=== PATIENT | female | born 1965 | race Caucasian/White ===

== ENCOUNTER → 2016-12-12 | Outpatient (CLI) | payer OTHER ==
[2016-12-12 12:45] LABS: ALT/SGPT 23 U/L (12-78); BLOOD UREA NITROGEN 16 mg/dl (7-18); BUN/CREATININE RATIO 17.1 (10-20); CALCIUM 8.8 mg/dl (8.5-10.1); CARBON DIOXIDE 26 mmol/L (21-32); CHLORIDE 105 mmol/L (98-107); CHOLESTEROL 201 mg/dl (0-200); CREATININE 0.91 mg/dl (0.60-1.20); GLUCOSE 141 mg/dl (70-99); POTASSIUM 3.9 mmol/L (3.5-5.1); SODIUM 141 mmol/L (136-145)
[2016-12-12 12:49] LABS: ALB/GLOB RATIO 1.1 (0.9-2); ALKALINE PHOSPHATASE 48 U/L (45-117); AST/SGOT 13 U/L (15-37); CHOLESTEROL/HDL RATIO 2.9; HDL CHOLESTEROL 70 mg/dl; LDL CHOLESTEROL CALCULATED 117 mg/dl; TRIGLYCERIDES 72 mg/dl (0-150); VERY LOW DENSITY LIPOPROT CALC 14 mg/dl
[2016-12-12 13:49] LABS: ESTIMATED AVERAGE GLUCOSE 148 mg/dl; HA1C FLAG Normal (Normal)
== END | disposition home or self-care (01) ==
LOC: C.LABBFT 07:56
PROVIDERS: ATTEND Nurse Practitioner
DX: E11.9 Type 2 diabetes mellitus without complications (principal)

== ENCOUNTER → 2016-12-19 | Outpatient (CLI) | payer OTHER | END | disposition home or self-care (01) | LOC: C.LABBFT 09:07 | PROVIDERS: ATTEND Nurse Practitioner | DX: Z11.59 Encounter for screening for other viral diseases (principal) ==

== ENCOUNTER → 2017-02-04 | Outpatient (CLI) | payer OTHER ==
--- NOTE | 2017-02-04 16:06 | MAMMOGRAPHY REPORT ---
BILATERAL DIGITAL SCREENING MAMMOGRAM TOMOSYNTHESIS WITH CAD: 02/04/2017 CLINICAL HISTORY: Routine screening. Patient has no complaints. TECHNIQUE: Breast tomosynthesis in addition to standard 2D mammography was performed. Current study was also evaluated with a Computer Aided Detection (CAD) system. COMPARISON: Comparison is made to exams dated: 01/31/2016 mammogram - [facility], 12/10/2013 mammogram, 11/02/2011 mammogram, 08/09/2010 mammogram - [facility], 06/26/2007, a nd 12/13/2014 mammogram - [facility]. BREAST COMPOSITION: The tissue of both breasts is extremely dense, which lowers the sensitivity of mammography. FINDINGS: There are possibly increasing clusters of microcalcifications in the 12:00 middle to post erior right breast, and in the upper outer middle to posterior left breast, for which additional spo t magnification views are recommended. Linear scar markers overlie the 12:00 axes of each breast and there is expected underlying net architect ural distortion in the 11:00 far posterior left breast, and 12:00 to 1:00 posterior right breast, de noting areas of prior surgery. No new suspicious mass or unexpected architectural distortion is iden tified bilaterally. IMPRESSION: ACR BI-RADS CATEGORY 0: INCOMPLETE EVALUATION: NEED ADDITIONAL IMAGING EVALUATION The possibly increasing clusters of microcalcifications within each breast need additional imaging e valuation. The patient will be called to schedule an appointment. Approximately 10% of breast cancers are not detected with mammography. A negative mammographic repor t should not delay biopsy if a clinically suggestive mass is present. Bernice Dupont M.D. ay/:02/04/2017 15:22:28 Pharmacy Technologist: Justin DAWSON)(Crystal), [facility] letter sent: Addl Imaging 0 BI-RADS Code: ACR BI-RADS Category 0: Incomplete Evaluation: Need Additional Imaging Evaluation
== END | disposition home or self-care (01) ==
LOC: C.MAMM 14:26
PROVIDERS: ATTEND Nurse Practitioner
DX: Z12.31 Encounter for screening mammogram for malignant neoplasm of breast (principal); R92.2 Inconclusive mammogram

== ENCOUNTER → 2017-02-07 | Outpatient (CLI) | payer OTHER ==
--- NOTE | 2017-02-07 13:35 | MAMMOGRAPHY REPORT ---
BILATERAL DIGITAL DIAGNOSTIC MAMMOGRAM: 02/07/2017 CLINICAL HISTORY: Callback from screening mammogram for bilateral calcifications. TECHNIQUE: Spot magnification bilateral cc and ML views were obtained. COMPARISON: Comparison is made to exams dated: 01/31/2016 mammogram, 02/04/2017 mammogram - [facility], 12/13/2014 mammogram, 12/10/2013 mammogram, 11/02/2011 mammogram, and 08/09/2010 ma mmogram - [facility]. BREAST COMPOSITION: The tissue of both breasts is extremely dense, which lowers the sensitivity of mammography. FINDINGS: Spot magnification views of the right breast demonstrate multiple similar-appearing group s of punctate and amorphous calcifications in the right superior breast at approximately 12:00. Spo t magnification views of the left breast also demonstrate multiple small groups of punctate and stephanie phous calcifications in the left upper outer quadrant, which appear similar to the calcifications in the right 12:00 breast. Compared to prior exams, calcifications appear stable compared to the 2016 exam, but are not clearly stable on exams prior to 2016, which could be related to technical differ ences. The calcifications are probably benign. Recommend follow-up in 6 months to confirm stabilit y on magnified views. Multiple other scattered benign appearing calcifications are noted within bot h breasts. IMPRESSION: ACR-BI-RADS CATEGORY 3: PROBABLY BENIGN Multiple similar-appearing groups of calcifications in the right 12:00 breast and left upper outer q uadrant are likely stable compared to the 2016 exam and are probably benign. Recommend bilateral di agnostic mammograms in 6 months to confirm stability on spot magnification views. The patient has been verbally notified of the results. Approximately 10% of breast cancers are not detected with mammography. A negative mammographic repor t should not delay biopsy if a clinically suggestive mass is present. Shruthi Stone M.D. /:02/07/2017 13:22:45 Electric Range Servicer: Rhiannon DIXON(R)(Crystal), [facility] letter sent: Follow Up Recommended 3 BI-RADS Code: ACR-BI-RADS Category 3: Probably Benign
== END | disposition home or self-care (01) ==
LOC: C.MAMM 12:40
PROVIDERS: ATTEND Nurse Practitioner
DX: R92.1 Mammographic calcification found on diagnostic imaging of breast (principal)

== ENCOUNTER → 2017-07-12 | Outpatient (CLI) | payer OTHER ==
[2017-07-12 12:32] LABS: ALT/SGPT 27 U/L (12-78); BLOOD UREA NITROGEN 17 mg/dl (7-18); BUN/CREATININE RATIO 18.5 (10-20); CALCIUM 9.5 mg/dl (8.5-10.1); CARBON DIOXIDE 28 mmol/L (21-32); CHLORIDE 101 mmol/L (98-107); CHOLESTEROL 161 mg/dl (0-200); CREATININE 0.93 mg/dl (0.60-1.20); GLUCOSE 137 mg/dl (70-99); POTASSIUM 3.7 mmol/L (3.5-5.1); SODIUM 136 mmol/L (136-145); TRIGLYCERIDES 75 mg/dl (0-150); VERY LOW DENSITY LIPOPROT CALC 15 mg/dl
[2017-07-12 12:35] LABS: ALB/GLOB RATIO 1.2 (0.9-2); ALKALINE PHOSPHATASE 54 U/L (45-117); AST/SGOT 18 U/L (15-37); CHOLESTEROL/HDL RATIO 2.3; HDL CHOLESTEROL 70 mg/dl; LDL CHOLESTEROL CALCULATED 76 mg/dl
[2017-07-12 12:51] LABS: ESTIMATED AVERAGE GLUCOSE 154 mg/dl; HA1C FLAG Normal (Normal)
[2017-07-12 13:05] LABS: RATIO 4.3 mcg/mg (0-30.0)
== END | disposition home or self-care (01) ==
LOC: C.LABBFT 08:23
PROVIDERS: ATTEND Nurse Practitioner
DX: E11.9 Type 2 diabetes mellitus without complications (principal)

== ENCOUNTER → 2017-08-12 | Outpatient (CLI) | payer OTHER ==
--- NOTE | 2017-08-12 12:36 | MAMMOGRAPHY REPORT ---
BILATERAL DIGITAL DIAGNOSTIC MAMMOGRAM TOMOSYNTHESIS WITH CAD: 08/12/2017 CLINICAL HISTORY: Short interval follow-up bilateral diagnostic mammograms for multiple clusters of b enign-appearing punctate and amorphous microcalcifications in both breasts. History of prior bilater al breast surgery. TECHNIQUE: Bilateral CC and MLO 2-D and tomosynthesis images, spot magnification CC and ML views of b oth breasts were obtained. Current study was also evaluated with a Computer Aided Detection (CAD) sy stem. COMPARISON: Comparison is made to exams dated: 02/07/2017 mammogram, 02/04/2017 mammogram, 01/31/2016 m ammogram - [facility], 12/13/2014 mammogram, 12/10/2013 mammogram, and 11/02/2011 mamm ogram - [facility]. BREAST COMPOSITION: The tissue of both breasts is extremely dense, which lowers the sensitivity of m ammography. FINDINGS: Linear scar markers overlie the 12:00 axis of each breast. There are segmental coarse rodl kenyatta and rim calcifications in the 2:00 to 3:00 left breast, in which there are a few more calcificati ons comprising appearing to prior mammograms but they are also increasingly coarse, suggesting benign ity. A few benign rim calcifications are scattered in the right breast. No obvious new mass, unexpe cted area of architectural distortion or developing asymmetry is seen bilaterally. Spot magnification views of both breasts demonstrate multiple similar appearing clusters and grouping s of punctate and amorphous microcalcifications. There are 3 dominant groupings in the 12:00 right b reast, and 2 in the upper outer left breast, that are stable compared to the spot magnification views obtained on 02/07/2017, and some of may have been present dating back to 2015 and prior mammograms, although there are slight technical differences in equipment. These microcalcifications are probably benign, but another short interval follow-up bilateral diagnostic mammogram including spot magnifica tion views are recommended to ensure longer stability. IMPRESSION: ACR-BI-RADS CATEGORY 3: PROBABLY BENIGN There are multiple bilateral similar appearing groupings/clusters of punctate and amorphous microcalc ifications in the 12:00 right breast and left upper outer quadrant that are probably benign. However , another short interval follow-up bilateral diagnostic mammogram including spot magnification views is recommended to ensure longer stability. These results and recommendations were discussed with the patient at the time of the exam. She jaya miller scheduled a follow-up appointment prior to leaving our department. Approximately 10% of breast cancers are not detected with mammography. A negative mammographic report should not delay biopsy if a clinically suggestive mass is present. Bernice Dupont M.D. ay/:08/12/2017 09:52:05 Lens Block Gauger: Justin DIXON(Augustina)(Crystal), [facility] letter sent: Follow Up Recommended 3 BI-RADS Code: ACR-BI-RADS Category 3: Probably Benign
== END | disposition home or self-care (01) ==
LOC: C.MAMM 08:58
PROVIDERS: ATTEND Nurse Practitioner
DX: R92.0 Mammographic microcalcification found on diagnostic imaging of breast (principal)

== ENCOUNTER → 2018-01-06 | Outpatient (CLI) | payer OTHER ==
[2018-01-06 12:40] LABS: ALBUMIN 3.6 gm/dl (3.4-5.0); ALT/SGPT 23 U/L (12-78); AST/SGOT 10 U/L (15-37); BLOOD UREA NITROGEN 18 mg/dl (7-18); CALCIUM 8.8 mg/dl (8.5-10.1); CARBON DIOXIDE 28 mmol/L (21-32); CHOLESTEROL 173 mg/dl (0-200); CREATININE 0.96 mg/dl (0.60-1.20); GLUCOSE 183 mg/dl (70-99); POTASSIUM 3.9 mmol/L (3.5-5.1); SODIUM 138 mmol/L (136-145)
[2018-01-06 12:50] LABS: ALKALINE PHOSPHATASE 46 U/L (45-117); LDL CHOLESTEROL CALCULATED 96 mg/dl; TOTAL PROTEIN 6.9 gm/dl (6.4-8.2)
[2018-01-06 13:07] LABS: HEMOGLOBIN A1C 7.3 % (4.5-5.6)
== END | disposition home or self-care (01) ==
LOC: C.LABBFT 07:40
PROVIDERS: ATTEND Nurse Practitioner
DX: E11.9 Type 2 diabetes mellitus without complications (principal)

== ENCOUNTER → 2018-01-20 | Outpatient (CLI) | payer OTHER ==
--- NOTE | 2018-01-20 13:02 | DIAGNOSTIC IMAGING REPORT ---
RIGHT POPLITEAL ULTRASOUND CLINICAL HISTORY: Right knee pain. Evaluate for Guevara's cyst cyst. COMPARISON STUDY: No previous studies for comparison. FINDINGS: Sonography of the right popliteal fossa demonstrated no popliteal cyst. No sonographic abnormality was identified. IMPRESSION: No sonographic abnormality within the right popliteal fossa. No Guevara's cyst. Electronically signed by: Leonard Wray M.D. 01/20/2018 1:01 PM Dictated Date/Time: 01/20/2018 1:00 PM
== END | disposition home or self-care (01) ==
LOC: C.ULTR 11:50
PROVIDERS: ATTEND Nurse Practitioner
DX: M25.561 Pain in right knee (principal)

== ENCOUNTER → 2018-02-24 | Outpatient (CLI) | payer OTHER ==
--- NOTE | 2018-02-25 07:47 | MAMMOGRAPHY REPORT ---
BILATERAL DIGITAL DIAGNOSTIC MAMMOGRAM TOMOSYNTHESIS WITH CAD: 02/24/2018 CLINICAL HISTORY: 52-year-old woman presents for follow-up in both breasts for groupings of microcalc ifications. She has a history of prior bilateral breast surgery. TECHNIQUE: Bilateral breast tomosynthesis in addition to standard 2D mammography was performed. Spot magnification CC and MLO views of each breast were also obtained. Current study was also evaluated with a Computer Aided Detection (CAD) system. COMPARISON: Comparison is made to exams dated: 08/12/2017 mammogram, 02/07/2017 mammogram, 02/04/2017 m ammogram, 01/31/2016 mammogram - [facility], 12/13/2014 mammogram, and 12/10/2013 mammo gram - [facility]. BREAST COMPOSITION: The tissue of both breasts is heterogeneously dense, which may obscure small mas ses. FINDINGS: Linear scar markers overlie the 12:00 to 1:00 left breast and 11:00 to 12:00 right breast, denoting the skin surgical scars. There are regional rodlike secretory calcifications in the lateral 2:00 through 4:00 left breast. Scattered benign rim calcifications in the right breast. No obvious new masses, asymmetries or unexpected architectural distortion is seen bilaterally. Spot magnification views of the right breast demonstrate numerous benign rim calcifications, scattere d round microcalcifications and approximately 4 discrete clusters of amorphous microcalcifications th at appear stable comparing to the prior spot magnification views obtained on and 02/07/2017. The most posterior grouping of calcifications is also stable dating back to spot magnification views from 2010, suggesting benignity. Given the increased conspicuity of the more anterior clusters of am orphous microcalcifications, another 12 month follow-up diagnostic mammogram including spot magnifica tion views is recommended to ensure longer stability. The spot magnification views of the left breas t demonstrate many rodlike secretory calcifications and coarse calcifications in the lateral breast b ut in the far lateral aspect, there are clusters of round and punctate/amorphous microcalcifications, also stable dating back to the spot magnification views obtained on 02/07/2017, and likely also prese nt dating back to 2010 based on the left MLO view. Another 12 month follow-up diagnostic mammogram i ncluding spot magnification views is recommended to ensure longer stability in the left breast as wel l. IMPRESSION: ACR-BI-RADS CATEGORY 3: PROBABLY BENIGN Stable bilateral mammograms including many groupings of punctate and amorphous microcalcifications bi laterally, with increasing coarse benign rodlike calcifications in the left breast and numerous benig n rim calcifications. These findings are most likely benign but another 12 month follow-up diagnosti c mammogram including bilateral spot magnification views is recommended to ensure longer stability. These results and recommendations were discussed with the patient at the time of the exam. Approximately 10% of breast cancers are not detected with mammography. A negative mammographic report should not delay biopsy if a clinically suggestive mass is present. Bernice Dupont M.D. ay/:02/24/2018 15:35:04 Justice Professor: Justin DIXON(R)(M), [facility] letter sent: Follow Up Recommended 3 BI-RADS Code: ACR-BI-RADS Category 3: Probably Benign
== END | disposition home or self-care (01) ==
LOC: C.MAMM 11:10
PROVIDERS: ATTEND Nurse Practitioner
DX: R92.0 Mammographic microcalcification found on diagnostic imaging of breast (principal); R92.1 Mammographic calcification found on diagnostic imaging of breast

== ENCOUNTER → 2018-02-28 | Outpatient (CLI) | payer OTHER | LOC: C.LABBFT 12:14 | PROVIDERS: ATTEND Nurse Practitioner | DX: E03.9 Hypothyroidism, unspecified (principal) ==

== ENCOUNTER → 2018-07-01 | Outpatient (CLI) | payer OTHER ==
[2018-07-01 13:29] LABS: HEMOGLOBIN A1C 8.3 % (4.5-5.6)
[2018-07-01 14:03] LABS: BLOOD UREA NITROGEN 17 mg/dl (7-18); CARBON DIOXIDE 24 mmol/L (21-32); CREATININE 0.94 mg/dl (0.60-1.20); GLUCOSE 161 mg/dl (70-99); POTASSIUM 3.6 mmol/L (3.5-5.1); SODIUM 138 mmol/L (136-145)
== END | disposition home or self-care (01) ==
LOC: C.LABBFT 07:40
PROVIDERS: ATTEND Nurse Practitioner
DX: E11.9 Type 2 diabetes mellitus without complications (principal); E03.9 Hypothyroidism, unspecified

== ENCOUNTER 2020-10-17 11:16 | Inpatient (IN) ==
[2020-10-17] MEDS ORDERED: AZITHROMYCIN 250 MG TAB PO ONE (12:15)
[2020-10-17] MEDS ORDERED: DEXAMETHASONE SOD INJ 10 MG/ML VIAL IV ONE (12:15)
[2020-10-17] MEDS ORDERED: ACETAMINOPHEN 1,000 MG/100 ML VIAL IV STA (12:15)
[2020-10-17] MEDS ORDERED: MAGNESIUM SULFATE / D5W 1 GM/100 ML BAG IV STA (12:16)
[2020-10-17] MEDS ORDERED: SODIUM CHLORIDE 0.9% 500 ML IV ONE (12:16)
[2020-10-17 12:57] LABS: Basophils # (auto) 0.04 K/uL (0-0.2); Basophils % (auto) 0.3 %; Eosinophils # (auto) 0.27 K/uL (0-0.5); Eosinophils % (auto) 2.3 %; Hematocrit (blood only) 38.8 % (37-47); Hemoglobin 13.4 g/dL (12.0-16.0); Immature Granulocytes # (auto) 0.03 K/uL (0.00-0.02); Immature Granulocytes % (auto) 0.3 %; Lymphocytes # (auto) 1.39 K/uL (1.2-3.4); Lymphocytes % (auto) 11.7 %; Mean Corpuscular Hemoglobin 27.8 pg (25-34); Mean Corpuscular Hgb Conc 34.5 g/dL (32-36); Mean Corpuscular Volume 80.5 fL (80-100); Mean Platelet Volume 9.5 fL (7.4-10.4); Monocytes # (auto) 1.61 K/uL (0.11-0.59); Monocytes % (auto) 13.6 %; Neutrophils % (auto) 71.8 %; Platelet Count 364 K/uL (130-400); RDW Standard Deviation 35.2 fL (36.4-46.3); Red Blood Count 4.82 M/uL (4.2-5.4); White Blood Count 11.84 K/uL (4.8-10.8)
[2020-10-17 13:08] LABS: INR 1.1 (0.9-1.1); Partial Thromboplastin Time 26.8 Seconds (21.0-31.0); Prothrombin Time 11.7 Seconds (9.0-12.0)
[2020-10-17 13:17] LABS: Aspartate Aminotransferase 26 U/L (15-37); Blood Urea Nitrogen 12 mg/dl (7-18); Carbon Dioxide 28 mmol/L (21-32); Chloride 96 mmol/L (98-107); Creatinine Clr Calc Pharmacy 78.5 ml/min; Est GFR (African American) 103.3; Est GFR (Non-African American) 89.1; Glucose 135 mg/dl (70-99); Magnesium 1.8 mg/dl (1.8-2.4); Potassium 2.9 mmol/L (3.5-5.1); Sodium 134 mmol/L (136-145)
[2020-10-17 13:22] LABS: Alanine Aminotransferase 32 U/L (12-78); Albumin Globulin Ratio 0.7 (0.9-2); Alkaline Phosphatase 60 U/L (45-117); Bilirubin,Total 0.7 mg/dl (0.2-1); Ferritin 234.6 ng/ml (8-388); Globulin 4.4 gm/dl (2.5-4.0); Total Protein 7.4 gm/dl (6.4-8.2); Troponin I < 0.015 ng/ml (0-0.045)
--- NOTE | 2020-10-17 13:37 | XRay Report ---
XR chest 1V portable CLINICAL HISTORY: SEPSIS COMPARISON STUDY: No previous studies for comparison. FINDINGS: The cardiac and mediastinal contours are normal. There are multifocal bilateral airspace op acities most pronounced in the right midlung zone laterally left lung base laterally. The findings ar e consistent with a multifocal pneumonia.[There is no failure. There are no pleural effusions. IMPRESSION: 1. Bilateral pulmonary airspace opacities consistent with a multifocal pneumonia. Clinical and radiog raphic follow-up is recommended. ACT 112: Negative or not required by law. Electronically signed by: Frankie Shea M.D. 10/17/2020 1:36 PM
[2020-10-17] MEDS ORDERED: POTASSIUM CHLORIDE CRTAB 20 MEQ TABCR PO STA ×2 (14:49→21:59)
--- NOTE | 2020-10-17 15:43 | Emergency Department Note ---
History of Present Illness General Chief complaint: Illness Stated complaint: COVID+,SOB,WEAK,DIARRHEA Time Seen by Provider: 10/17/20 11:39 Source: patient, EMS and RN notes reviewed Mode of arrival: ambulatory Limitations: no limitations History of Present Illness Provider complaint: Covid Onset (ago): day(s) 10 Severity: mild Maximum Pain Intensity: 0 Relieved By: + immobilization and + rest Exacerbated By: + movement Associated symptoms: + confusion, + cough, + fever/chills, + malaise, + nausea/vomiting, + shortness of breath and + weakness Treatments prior to arrival: none This is a 54-year-old female who was diagnosed with Covid on . The patient reports since that time she has become increasingly weaker with severe diarrhea and shortness of breath. The patient reports she has not been getting any better. She has not been taking anything for the diarrhea. She also reports she has not been eating. She has not taken anything for the weakness. She reports exertion makes her shortness of breath worse however rest and immobilization makes it better. Home Medications Medication Instructions Recorded Confirmed Type albuterol sulfate 2.5 mg INHALATION .COMPLEX PRN 05/21/19 05/30/20 History aspirin 81 mg tablet,delayed 81 mg PO DAILY tab 05/21/19 05/30/20 History release cyanocobalamin (vitamin B-12) 1,000 mcg PO DAILY tab 05/21/19 05/30/20 History 1,000 mcg tablet vitamin E 200 unit capsule 200 unit PO DAILY cap 05/21/19 05/30/20 History lisinopril 2.5 mg tablet 2.5 mg PO DAILY #90 tab 09/14/19 05/30/20 Rx pravastatin 20 mg tablet 20 mg PO HS #90 tab 04/12/20 05/30/20 Rx elderberry fruit 200 mg capsule mg PO 05/02/20 05/30/20 History metformin 1,000 mg tablet 1,000 mg PO BID #60 tab 05/04/20 05/30/20 Rx Trulicity 1.5 mg/0.5 mL 1.5 mg SQ WEEKLY 90 Days #6 ml NS 06/09/20 Rx subcutaneous pen injector levothyroxine 75 mcg tablet 75 mcg PO .COMPLEX #90 tab 08/23/20 Rx ondansetron HCl 4 mg tablet 4 mg PO Q8H PRN #30 tab 10/11/20 10/11/20 Rx Allergies Allergy/AdvReac Type Severity Reaction Status Date / Time No Known Allergies Allergy Verified 10/17/20 13:41 Past Med/Surg History Medical History (Updated 10/20/20 @ 08:49 by Jimi Calderon MD) Asthma stable - nebulizer/inh prn last used 6 mo ago Diabetes mellitus, type 2 NIDDM History of dysplastic nevus Migraine Obesity Seborrheic keratosis Surgical History History of bilateral tubal ligation History of cholecystectomy History of colonoscopy History of endometrial ablation History of hand surgery History of removal of cyst on bilateral breast (fibroid cyst) History of surgery "blood boil sx when I was born" History of tubal ligation History of wisdom tooth extraction Hx of removal of cyst removal of right arm Family History Father Alcohol abuse Diabetes Brother Alcohol abuse Mother Cardiac disorder Hypertension Daughter Cardiac disorder Family/Other Cancer Grandmother Breast cancer Grandfather Myocardial infarction Uncle Myocardial infarction Other No family history of adverse response to anesthesia Social History Smoking Status: Never smoker Second Hand Exposure: No; Hx Alcohol Use: No Hx Substance Use: No Preferred Language: Tajik Communication Ability: Effective Veterinary Assistant Required: No Beliefs That Will Affect Care: None Current Living Situation: Spouse and Family Current Living Situation Comment: and daughter current occupational status: employed current occupation: Student Development Specialist Feels Safe at Home: Yes Dental Care, Regularly: Yes Physical Activity Frequency: 3-4 Times per Week Assistive Devices: None Review of Systems A total of 10 systems reviewed and were otherwise negative Physical Exam Vital Signs Vital Signs - 24 hr 10/17/20 11:25 10/17/20 12:31 10/17/20 12:32 Temperature 37.0 C Temperature Source Oral Pulse Rate 108 H 94 H Pulse Rate [Apical] 94 H Pulse Rhythm Regular Regular Pulse Rhythm [Apical] Regular Pulse Strength [Apical] Normal Respiratory Rate 20 18 Respiratory Effort / Characteristics Non-Labored Non-Labored Spontaneous Respiratory Depth Normal Normal Respiratory Pattern Regular Blood Pressure 126/87 Blood Pressure [Right Arm] 120/82 Blood Pressure Mean 100 Blood Pressure Mean [Right Arm] 94 Blood Pressure Position [Right Arm] Sitting Pulse Oximetry 93 89 L 89 L Oxygen Delivery Method Room Air Room Air Room Air Sepsis Recent Fever Within 48 Hours No Sepsis New/Unexplained Change in Mental Status N/A Sepsis Action Taken by Nursing No Action Required Oxygen Flow Rate - Titration 2 Pulse Oximetry Post Tiitration 95 10/17/20 13:30 Temperature Temperature Source Pulse Rate Pulse Rate [Apical] 95 H Pulse Rhythm Pulse Rhythm [Apical] Regular Pulse Strength [Apical] Normal Respiratory Rate 18 Respiratory Effort / Characteristics Non-Labored Spontaneous Respiratory Depth Normal Respiratory Pattern Regular Blood Pressure Blood Pressure [Right Arm] 120/79 Blood Pressure Mean Blood Pressure Mean [Right Arm] 92 Blood Pressure Position [Right Arm] Sitting Pulse Oximetry 97 Oxygen Delivery Method Room Air Sepsis Recent Fever Within 48 Hours Sepsis New/Unexplained Change in Mental Status Sepsis Action Taken by Nursing Oxygen Flow Rate - Titration Pulse Oximetry Post Tiitration VITAL SIGNS - Vital signs and nursing notes were reviewed. GENERAL - 54-year-old female appearing stated age who is in no acute distress. Communicates well with provider and answers questions appropriately. SKIN - Without rashes. HEAD - NC/AT. EYES - PERRL with EOMI bilaterally. Sclera anicteric. Palpebral conjunctiva pink and moist with no injection noted. EARS - No deformities of external structures noted on gross examination bilaterally. No pain elicited with palpation of the tragus bilaterally. External auditory canals without discharge or otorrhea. Tympanic membranes pearly cedeño without retraction or bulging. No fluid or purulent material visualized behind the TM. Handle of malleus, umbo, cone of light, pars tensa/flaccid all easily visualized. NOSE - Midline and without cyanosis. No epistaxis or purulent drainage noted. Septum midline without deviation or septal hematoma noted. MOUTH/OROPHARYNX - Without perioral cyanosis. Buccal mucosa pink and moist and without leukoplakia. Tongue midline with equal elevation of palate bilaterally. No tonsillar hypertrophy, erythema, or exudates noted. dentition noted. NECK - Neck with FROM. Supple to palpation. lymphadenopathy noted. No nuchal rigidity. LUNGS - Chest wall symmetric without accessory muscle use, intercostals retractions, or central cyanosis. Normal vesicular breath sounds CTA B/L. No wheezes, rales, or rhonchi appreciated. CARDIAC - RRR with S1/S2. No murmur, rubs, or gallops appreciated. ABDOMEN - Abdominal contour without pulsations or visible masses. BS nor moactive all four quadrants. No tenderness, palpable masses, hepatosplenomegaly, or ascites noted. EXTREMITIES - No clubbing or peripheral cyanosis. No pretibial edema present. +3/5 radial, posterior tibial, and dorsalis pedis pulses palpated throughout. +5/5 strength noted in UE/LE bilaterally. NEUROLOGIC - Cranial nerves II through XII grossly intact. Sensory intact to light touch throughout. Patellar reflexes +2/4. PSYCH - A&Ox3 and cooperates fully with examiner. Pt is very pleasant and i nteracts well with examiner. Course Administered Medications Discontinued Medications Aspirin (Aspirin 81 Mg Ectab) 81 mg PO DAILY [facility] Stop: 11/17/20 08:59 Last Admin: 10/19/20 09:02 Dose: 81 mg Documented by: [id number] Admin: 10/18/20 08:41 Dose: 81 mg Documented by: [id number] Azithromycin (Azithromycin 250 Mg Tab) 500 mg PO NOW ONE Stop: 10/17/20 12:16 Last Admin: 10/17/20 12:54 Dose: 500 mg Documented by: [id number] Cyanocobalamin (Cyanocobalamin 500 Mcg Tablet (Vitamin B-12)) 1,000 mcg PO DAILY [facility] Stop: 11/17/20 08:59 Last Admin: 10/19/20 09:02 Dose: 1,000 mcg Documented by: [id number] Admin: 10/18/20 08:41 Dose: 1,000 mcg Documented by: [id number] Dexamethasone (Dexamethasone Sod Inj 10 Mg/Ml Vial) 6 mg IV NOW ONE Stop: 10/17/20 12:16 Last Admin: 10/17/20 12:54 Dose: 6 mg Documented by: [id number] Enoxaparin Sodium (Enoxaparin Inj 40 Mg/0.4 Ml Syr) 40 mg SQ BID [facility] Stop: 11/16/20 22:14 Last Admin: 10/19/20 09:01 Dose: 40 mg Documented by: [id number] Admin: 10/18/20 20:48 Dose: 40 mg Documented by: [id number] Admin: 10/18/20 09:28 Dose: 40 mg Documented by: [id number] Admin: 10/17/20 23:16 Dose: 40 mg Documented by: [id number] Magnesium Sulfate/Dextrose (Magnesium Sulfate / D5w) 1 gm in 100 mls @ 100 mls/hr IV NOW STA Stop: 10/17/20 13:15 Last Infusion: 10/17/20 13:54 Dose: 0 mls/hr Documented by: [id number] Admin: 10/17/20 12:54 Dose: 100 mls/hr Documented by: [id number] Acetaminophen (Ofirmev) 1,000 mg in 100 mls @ 400 mls/hr IV NOW STA Stop: 10/17/20 12:29 Last Infusion: 10/17/20 13:24 Dose: 0 mls/hr Documented by: [id number] Admin: 10/17/20 12:54 Dose: 400 mls/hr Documented by: [id number] Sodium Chloride (Nss) 500 mls @ 999 mls/hr IV .Q31M ONE Stop: 10/17/20 12:46 Last Infusion: 10/17/20 13:35 Dose: 0 mls/hr Documented by: [id number] Admin: 10/17/20 12:55 Dose: 999 mls/hr Documented by: [id number] Sodium Chloride (Nss 1000ml) 1,000 mls @ 80 mls/hr IV .[id number] [facility] Stop: 10/19/20 11:28 Last Infusion: 10/18/20 22:06 Dose: 0 mls/hr Documented by: [id number] Admin: 10/18/20 11:10 Dose: 80 mls/hr Documented by: [id number] Infusion: 10/18/20 11:09 Dose: 80 mls/hr Documented by: [id number] Admin: 10/17/20 22:39 Dose: 80 mls/hr Documented by: [id number] Dexamethasone Sodium Phosphate (6 mg/ Syringe) 1.5 mls @ 1 mls/min IV QAM [facility] Stop: 10/26/20 09:02 Last Admin: 10/19/20 08:59 Dose: 1 mls/min Documented by: [id number] Admin: 10/18/20 08:41 Dose: 1 mls/min Documented by: [id number] Insulin Aspart (Insulin Aspart 100 Units/Ml 3 Ml Pen) 0 units SC ACHS [facility] Stop: 11/16/20 22:14 Last Admin: 10/19/20 12:41 Dose: 2 units Documented by: [id number] Cosigned by: [id number] Admin: 10/19/20 08:57 Dose: 1 units Documented by: [id number] Cosigned by: [id number] Admin: 10/18/20 21:00 Dose: 4 units Documented by: [id number] Cosigned by: [id number] Admin: 10/18/20 17:59 Dose: 5 units Documented by: [id number] Cosigned by: [id number] Admin: 10/18/20 12:36 Dose: 3 units Documented by: [id number] Cosigned by: [id number] Admin: 10/18/20 08:41 Dose: 3 units Documented by: [id number] Cosigned by: [id number] Admin: 10/17/20 23:17 Dose: 4 units Documented by: [id number] Cosigned by: [id number] Insulin Human NPH (Novolin-N (Nph) Per Unit Charge) 10 units SQ NOW STA Stop: 10/17/20 16:20 Last Admin: 10/17/20 18:20 Dose: 10 units Documented by: [id number] Cosigned by: [id number] Insulin Human NPH (Insulin Human Nph) 21 units SC QAM [facility] Stop: 11/18/20 08:59 Last Admin: 10/19/20 09:01 Dose: 21 units Documented by: [id number] Cosigned by: [id number] Levothyroxine Sodium (Levothyroxine Sodium 75 Mcg Tablet) [facility] Stop: 11/17/20 06:29 Last Admin: 10/19/20 06:06 Dose: 75 mcg Documented by: [id number] Admin: 10/18/20 08:41 Dose: 75 mcg Documented by: [id number] Potassium Chloride (Potassium Chloride Crtab 20 Meq Tabcr) 40 meq PO NOW STA Stop: 10/17/20 14:50 Last Admin: 10/17/20 15:41 Dose: 40 meq Documented by: [id number] Potassium Chloride (Potassium Chloride Crtab 20 Meq Tabcr) 40 meq PO NOW STA Stop: 10/17/20 22:00 Last Admin: 10/17/20 23:16 Dose: 40 meq Documented by: [id number] Pravastatin Sodium (Pravastatin Sod 20 Mg Tab) 20 mg PO [facility] Stop: 11/16/20 22:14 Last Admin: 10/18/20 20:48 Dose: 20 mg Documented by: [id number] Admin: 10/17/20 23:16 Dose: 20 mg Documented by: [id number] Critical Care Time I have personally spent greater than 30 minutes of critical care time in the direct management of this patient. This includes bedside care, interpretation of diagnostic studies, and testing, discussion with consultants, patient, and family members, and other required patient management activities. This 30 minutes is in excess of all separately billable procedures. Medical Decision Making Differential Diagnosis Reactive airway disease, pneumonia, pneumothorax, COPD, CHF, infections, cardiac ischemia, pulmonary embolism, musculoskeletal, gastrointestinal, as well as ot her pathologies. Medical Records Attestation: I reviewed the patient's medical records. Home Medications Current Medication List: was personally reviewed by me Laboratory Data Attestation: I reviewed the patient's lab results. Result diagrams: 10/18/20 05:47 10/19/20 06:35 Lab Results 10/17/20 10/17/20 10/17/20 Range/Units 12:31 12:31 12:31 WBC 11.84 H (4.8-10.8) K/uL RBC 4.82 (4.2-5.4) M/uL Hgb 13.4 (12.0-16.0) g/dL Hct 38.8 (37-47) % MCV 80.5 (80-100) fL MCH 27.8 (25-34) pg MCHC 34.5 (32-36) g/dL RDW Std Deviation 35.2 L (36.4-46.3) fL RDW Coeff of Erick 12.0 (11.5-14.5) % Plt Count 364 (130-400) K/uL MPV 9.5 (7.4-10.4) fL Immature Gran % (Auto) 0.3 % Neut % (Auto) 71.8 % Lymph % (Auto) 11.7 % Tift % (Auto) 13.6 % Eos % (Auto) 2.3 % Baso % (Auto) 0.3 % Neut # (Auto) 8.50 H (1.4-6.5) K/uL Lymph # (Auto) 1.39 (1.2-3.4) K/uL Tift # (Auto) 1.61 H (0.11-0.59) K/uL Eos # (Auto) 0.27 (0-0.5) K/uL Baso # (Auto) 0.04 (0-0.2) K/uL Immature Gran # (Auto) 0.03 H (0.00-0.02) K/uL ESR 43 H (0-21) mm/hr PT 11.7 (9.0-12.0) Seconds INR 1.1 (0.9-1.1) APTT 26.8 (21.0-31.0) Seconds PTT Ratio 1.0 D-Dimer (0-500) ug/L FEU Sodium (136-145) mmol/L Potassium (3.5-5.1) mmol/L Chloride (98-107) mmol/L Carbon Dioxide (21-32) mmol/L Anion Gap (3-11) BUN (7-18) mg/dl Creatinine (0.6-1.2) mg/dl Est Cr Clr Drug Dosing ml/min Est GFR ( Amer) Est GFR (Non-Af Amer) BUN/Creatinine Ratio (10-20) Glucose (70-99) mg/dl Lactate (0.4-2.0) mmol/L Calcium (8.5-10.1) mg/dl Magnesium (1.8-2.4) mg/dl Ferritin (8-388) ng/ml Total Bilirubin (0.2-1) mg/dl AST (15-37) U/L ALT (12-78) U/L Alkaline Phosphatase (45-117) U/L Lactate Dehydrogenase (84-246) U/L Troponin I (0-0.045) ng/ml C-Reactive Protein (0-0.29) mg/dl Total Protein (6.4-8.2) gm/dl Albumin (3.4-5.0) gm/dl Globulin (2.5-4.0) gm/dl Albumin/Globulin Ratio (0.9-2) Procalcitonin (0-0.5) ng/ml COVID-19 Eval Order SARS-CoV-2, RNA, NAAT (NEGATIVE) Blood Type Antibody Screen 10/17/20 10/17/20 10/17/20 Range/Units 12:31 12:31 12:31 WBC (4.8-10.8) K/uL RBC (4.2-5.4) M/uL Hgb (12.0-16.0) g/dL Hct (37-47) % MCV (80-100) fL MCH (25-34) pg MCHC (32-36) g/dL RDW Std Deviation (36.4-46.3) fL RDW Coeff of Erick (11.5-14.5) % Plt Count (130-400) K/uL MPV (7.4-10.4) fL Immature Gran % (Auto) % Neut % (Auto) % Lymph % (Auto) % Tift % (Auto) % Eos % (Auto) % Baso % (Auto) % Neut # (Auto) (1.4-6.5) K/uL Lymph # (Auto) (1.2-3.4) K/uL Tift # (Auto) (0.11-0.59) K/uL Eos # (Auto) (0-0.5) K/uL Baso # (Auto) (0-0.2) K/uL Immature Gran # (Auto) (0.00-0.02) K/uL ESR (0-21) mm/hr PT (9.0-12.0) Seconds INR (0.9-1.1) APTT (21.0-31.0) Seconds PTT Ratio D-Dimer (0-500) ug/L FEU Sodium 134 L (136-145) mmol/L Potassium 2.9 L (3.5-5.1) mmol/L Chloride 96 L (98-107) mmol/L Carbon Dioxide 28 (21-32) mmol/L Anion Gap 10.0 (3-11) BUN 12 (7-18) mg/dl Creatinine 0.75 (0.6-1.2) mg/dl Est Cr Clr Drug Dosing 78.5 ml/min Est GFR ( Amer) 103.3 Est GFR (Non-Af Amer) 89.1 BUN/Creatinine Ratio 16.0 (10-20) Glucose 135 H (70-99) mg/dl Lactate (0.4-2.0) mmol/L Calcium 9.0 (8.5-10.1) mg/dl Magnesium 1.8 (1.8-2.4) mg/dl Ferritin 234.6 (8-388) ng/ml Total Bilirubin 0.7 (0.2-1) mg/dl AST 26 (15-37) U/L ALT 32 (12-78) U/L Alkaline Phosphatase 60 (45-117) U/L Lactate Dehydrogenase 232 (84-246) U/L Troponin I < 0.015 (0-0.045) ng/ml C-Reactive Protein 10.00 H (0-0.29) mg/dl Total Protein 7.4 (6.4-8.2) gm/dl Albumin 3.0 L (3.4-5.0) gm/dl Globulin 4.4 H (2.5-4.0) gm/dl Albumin/Globulin Ratio 0.7 L (0.9-2) Procalcitonin < 0.05 (0-0.5) ng/ml COVID-19 Eval Order SARS-CoV-2, RNA, NAAT (NEGATIVE) Blood Type Antibody Screen 10/17/20 10/17/20 10/17/20 Range/Units 12:31 12:42 15:34 WBC (4.8-10.8) K/uL RBC (4.2-5.4) M/uL Hgb (12.0-16.0) g/dL Hct (37-47) % MCV (80-100) fL MCH (25-34) pg MCHC (32-36) g/dL RDW Std Deviation (36.4-46.3) fL RDW Coeff of Erick (11.5-14.5) % Plt Count (130-400) K/uL MPV (7.4-10.4) fL Immature Gran % (Auto) % Neut % (Auto) % Lymph % (Auto) % Tift % (Auto) % Eos % (Auto) % Baso % (Auto) % Neut # (Auto) (1.4-6.5) K/uL Lymph # (Auto) (1.2-3.4) K/uL Tift # (Auto) (0.11-0.59) K/uL Eos # (Auto) (0-0.5) K/uL Baso # (Auto) (0-0.2) K/uL Immature Gran # (Auto) (0.00-0.02) K/uL ESR (0-21) mm/hr PT (9.0-12.0) Seconds INR (0.9-1.1) APTT (21.0-31.0) Seconds PTT Ratio D-Dimer 1200 H* (0-500) ug/L FEU Sodium (136-145) mmol/L Potassium (3.5-5.1) mmol/L Chloride (98-107) mmol/L Carbon Dioxide (21-32) mmol/L Anion Gap (3-11) BUN (7-18) mg/dl Creatinine (0.6-1.2) mg/dl Est Cr Clr Drug Dosing ml/min Est GFR ( Amer) Est GFR (Non-Af Amer) BUN/Creatinine Ratio (10-20) Glucose (70-99) mg/dl Lactate 1.1 (0.4-2.0) mmol/L Calcium (8.5-10.1) mg/dl Magnesium (1.8-2.4) mg/dl Ferritin (8-388) ng/ml Total Bilirubin (0.2-1) mg/dl AST (15-37) U/L ALT (12-78) U/L Alkaline Phosphatase (45-117) U/L Lactate Dehydrogenase (84-246) U/L Troponin I (0-0.045) ng/ml C-Reactive Protein (0-0.29) mg/dl Total Protein (6.4-8.2) gm/dl Albumin (3.4-5.0) gm/dl Globulin (2.5-4.0) gm/dl Albumin/Globulin Ratio (0.9-2) Procalcitonin (0-0.5) ng/ml COVID-19 Eval Order SARS-CoV-2, RNA, NAAT (NEGATIVE) Blood Type A Positive Antibody Screen NEGATIVE 10/17/20 10/17/20 Range/Units 15:42 15:42 WBC (4.8-10.8) K/uL RBC (4.2-5.4) M/uL Hgb (12.0-16.0) g/dL Hct (37-47) % MCV (80-100) fL MCH (25-34) pg MCHC (32-36) g/dL RDW Std Deviation (36.4-46.3) fL RDW Coeff of Erick (11.5-14.5) % Plt Count (130-400) K/uL MPV (7.4-10.4) fL Immature Gran % (Auto) % Neut % (Auto) % Lymph % (Auto) % Tift % (Auto) % Eos % (Auto) % Baso % (Auto) % Neut # (Auto) (1.4-6.5) K/uL Lymph # (Auto) (1.2-3.4) K/uL Tift # (Auto) (0.11-0.59) K/uL Eos # (Auto) (0-0.5) K/uL Baso # (Auto) (0-0.2) K/uL Immature Gran # (Auto) (0.00-0.02) K/uL ESR (0-21) mm/hr PT (9.0-12.0) Seconds INR (0.9-1.1) APTT (21.0-31.0) Seconds PTT Ratio D-Dimer (0-500) ug/L FEU Sodium (136-145) mmol/L Potassium (3.5-5.1) mmol/L Chloride (98-107) mmol/L Carbon Dioxide (21-32) mmol/L Anion Gap (3-11) BUN (7-18) mg/dl Creatinine (0.6-1.2) mg/dl Est Cr Clr Drug Dosing ml/min Est GFR ( Amer) Est GFR (Non-Af Amer) BUN/Creatinine Ratio (10-20) Glucose (70-99) mg/dl Lactate (0.4-2.0) mmol/L Calcium (8.5-10.1) mg/dl Magnesium (1.8-2.4) mg/dl Ferritin (8-388) ng/ml Total Bilirubin (0.2-1) mg/dl AST (15-37) U/L ALT (12-78) U/L Alkaline Phosphatase (45-117) U/L Lactate Dehydrogenase (84-246) U/L Troponin I (0-0.045) ng/ml C-Reactive Protein (0-0.29) mg/dl Total Protein (6.4-8.2) gm/dl Albumin (3.4-5.0) gm/dl Globulin (2.5-4.0) gm/dl Albumin/Globulin Ratio (0.9-2) Procalcitonin (0-0.5) ng/ml COVID-19 [facility] SARS-[facility], RNA, NAAT POSITIVE A* (NEGATIVE) Blood Type Antibody Screen Imaging Data Radiologist's Impression: [facility], [id number] XRay Report Patient: BHASKAR RICHARDS Date: 10/17/20MR#: [id number]: [address] ID:[id number]: [address] Date[facility] 1965[facility] Zip: [place] [address]Lke: 54Location: EDSex: FRoom/Bed:Att Phy:Diagnosis: COVID+,SOB,WEAK,DIARRHEAPri Phy: Erika Bonner CRNPService Date: 10/17/20Fam Phy:Interpreting Phy: Frankie Shea MDAdmit Phy: Ordering Phy: Jimi Calderon MD cc: ~ XR chest 1V portable CLINICAL HISTORY: SEPSIS COMPARISON STUDY: No previous studies for comparison. FINDINGS: The cardiac and mediastinal contours are normal. There are multifocal bilateral airspace opacities most pronounced in the right midlung zone laterally left lung base laterally. The findings are consistent with a multifocal pneumo natanael.[There is no failure. There are no pleural effusions. IMPRESSION: 1. Bilateral pulmonary airspace opacities consistent with a multifocal pneumonia. Clinical and radiographic follow-up is recommended. ACT 112: Negative or not required by law. Electronically signed by: Frankie Shea M.D. 10/17/2020 1:36 PM Dictated: 10/17/20 1335Transcribed: 10/17/20 1335 ECG Data Attestation: I personally reviewed and interpreted this ECG as follows: Indication: + SOB/dyspnea Rate (beats per minute): 98 Rhythm: + normal sinus ECG Intervals/blocks: + Normal QT-c (444) ECG Irwin: + Normal ECG ST segments: no ST depression and no ST elevation Comparison ECG Date: from (06/09/2019) Change: no significant change MDM Narrative Patient was seen and evaluated as above in room B5. Review was performed of nursing notes and vital signs. I did review pertinent previous visits and patient history. After obtaining a thorough history and physical examination the above work up was performed. This is a 54-year-old female who presents emergency department complaining of severe shortness of breath and weakness. The patient's potassium was found to be decreased this was repleted in the emergency department. She was started on Tylenol as well as Decadron. The patient is requiring oxygen here in the emergency department therefore I did discuss the case with the hospitalist service who did agree to admit the patient. Patient was given an albuterol inhaler to use. An order was placed for continuous cardiac monitoring. The monitor shows a rate of 98 with Normal SInus rhythm. The patient was evaluated during a period of high volume and high acuity while the hospital was at overcapacity during the global COVID-19 pandemic, and that diagnosis was suspected/considered upon their initial presentation. Their evaluation, treatment and testing was consistent with current guidelines for patients who present with complaints or symptoms that may be related to COVID- 19. Impression & Plan COVID-19, Pneumonia Discharge Plan Visit Data Chief Complaint: Illness Stated Complaint: COVID+,SOB,WEAK,DIARRHEA ED Provider: Jimi Calderon Discharge Problem: COVID-19, Pneumonia Patient Disposition: Admitted As Inpatient Condition: Good Discharge Instructions Interventions: ED Discharge Assessment Last Done: 10/17/20 21:37 Discharge Problem: Pneumonia Qualifiers: Pneumonia type: due to unspecified organism Laterality: unspecified laterality Lung location: unspecified part of lung Qualified Code(s): J18.9 - Pneumonia, unspecified organism
--- NOTE | 2020-10-17 15:47 | History & Physical Report ---
Date of Service October 17, 2020 Assessment & Plan (1) COVID-19: Dexamethasone 6mg IV daily for 10 day course given increased inflammatory markers. Diagnosis and symptoms started 10/05 unlikely benefit from remedesivir or convalescent plasma and her symptoms appear to be mostly related to diarrhea and generalized fatigue than COVID-19 pneumonia. (2) Diarrhea: Suspected secondary to COVID-19 Hold off Imodium at present time Monitor BMs Replete electrolytes NSS @ 80ml/hr (3) Weakness: Generalized secondary to COVID-19. PT/OT evals. (4) Hypokalemia: Secondary to diarrhea + HCTZ (hold HCTZ) KCl 40 meq PO given in ER. BMP with AM labs. (5) Uncontrolled type II diabetes mellitus: HbA1C 7.0 in May. Will repeat with AM labs. Hold Metformin and Trulicity Insulin NPH 10 units now to cover dexamethasone Continue Novolog for correction factor only pending repeat glucose measurements (6) Hypothyroidism: TSH 1.56 in May Continue levothyroxine home dosing (7) Asthma: No acute exacerbation suspected. No wheezing on exam. (8) DVT prophylaxis: Lovenox 40mg SQ BID (increased dose due to COVID-19 diagnosis and increased d-dimer). Admission and Anticipated Discharge Date Admission Date: 10/17/2020 History of Present Illness Chief Complaint: Diarrhea, fatigue Primary Care Provider: MARCI Torre Emma Vazquez is a 54 year old female with known COVID-19 diagnosis who presents to the ER with worsening fatigue and diarrhea. Initial symptoms for COVID-19 started with headache and myalgias on October 05. She initially felt she was improving from a respiratory point of view however started having increased diarrhea and associated fatigue over the last two days. Diarrhea is loose and brown. Associated decreased appetite. She denies any nausea, vomiting, melena, bright red blood in stool or abdominal pain. She denies any fevers, chills, flank pain, no dysuria, change in urine color/frequency/smell. She denies any significant shortness of breath and initial cough has been improving. In the ER chest x-ray was concerning for multifocal pneumonia. Procalcitonin negative. She was mildly hypoxic and referred to medicine admission and ongoing management for hypoxia and Covid pneumonia. Allergies Allergy/AdvReac Type Severity Reaction Status Date / Time No Known Allergies Allergy Verified 10/17/20 13:41 Home Medications Medication Instructions Recorded Confirmed Type albuterol sulfate 2.5 mg INHALATION .COMPLEX PRN 05/21/19 05/30/20 History aspirin 81 mg tablet,delayed 81 mg PO DAILY tab 05/21/19 05/30/20 History release cyanocobalamin (vitamin B-12) 1,000 mcg PO DAILY tab 05/21/19 05/30/20 History 1,000 mcg tablet vitamin E 200 unit capsule 200 unit PO DAILY cap 05/21/19 05/30/20 History lisinopril 2.5 mg tablet 2.5 mg PO DAILY #90 tab 09/14/19 05/30/20 Rx pravastatin 20 mg tablet 20 mg PO HS #90 tab 04/12/20 05/30/20 Rx hydrochlorothiazide 25 mg tablet 25 mg PO DAILY #90 tab 04/27/20 05/30/20 Rx elderberry fruit 200 mg capsule mg PO 05/02/20 05/30/20 History metformin 1,000 mg tablet 1,000 mg PO BID #60 tab 05/04/20 05/30/20 Rx Trulicity 1.5 mg/0.5 mL 1.5 mg SQ WEEKLY 90 Days #6 ml NS 06/09/20 Rx subcutaneous pen injector levothyroxine 75 mcg tablet 75 mcg PO .COMPLEX #90 tab 08/23/20 Rx ondansetron HCl 4 mg tablet 4 mg PO Q8H PRN #30 tab 10/11/20 10/11/20 Rx Past Med/Surg History Medical History Asthma stable - nebulizer/inh prn last used 6 mo ago Diabetes mellitus, type 2 NIDDM History of dysplastic nevus Migraine Obesity Seborrheic keratosis Surgical History History of bilateral tubal ligation History of cholecystectomy History of colonoscopy History of endometrial ablation History of hand surgery History of removal of cyst on bilateral breast (fibroid cyst) History of surgery "blood boil sx when I was born" History of tubal ligation History of wisdom tooth extraction Hx of removal of cyst removal of right arm Family History Father Alcohol abuse Diabetes Brother Alcohol abuse Mother Cardiac disorder Hypertension Daughter Cardiac disorder Family/Other Cancer Grandmother Breast cancer Grandfather Myocardial infarction Uncle Myocardial infarction Other No family history of adverse response to anesthesia Social History Smoking Status: Never smoker Second Hand Exposure: No; Hx Alcohol Use: No Hx Substance Use: No Preferred Language: Albanian Communication Ability: Effective Manager Cash Required: No Beliefs That Will Affect Care: None Current Living Situation: Spouse and Family Current Living Situation Comment: and daughter current occupational status: employed current occupation: Back [employer] Other Information That Helps Us Care for You: No Feels Safe at Home: Yes Safety Concerns: Feels Safe At This Time Dental Care, Regularly: Yes Physical Activity Frequency: 3-4 Times per Week Assistive Devices: Oxygen - Continuous Review of Systems Review of Systems: All systems reviewed & are unremarkable except as noted in HPI & below Physical Exam Constitutional: well developed, well nourished and + ill appearing; no acute distress Eyes: + anicteric sclerae; normal pupil size ENMT: Ears: no external ear abnormality Nose: no external nose abnormality Mouth: + dry oral mucous membranes Neck: trachea midline Respiratory: normal respiratory effort, lungs clear to auscultation Cardiovascular: Rate/Rhythm: regular rate and regular rhythm Heart Sounds: no murmur Vessels: no JVD Extremities: normal capillary refill; no calf tenderness and no pedal edema Gastrointestinal (Abdomen): normal bowel sounds, soft, nontender, no hep atosplenomegaly Musculoskeletal: no cyanosis or clubbing, extremities motor strength 5/5 Skin: no rashes, warm and dry Neurologic: moves all extremities and awake; no focal motor deficits and not confused Speech / Cognition: normal speech Motor/Sensory: no tremor and no pronator drift Psychiatric: A+Ox3, euthymic affect Results & Data Results & Data ([facility]) Vital Signs (Past 12 Hours) Vital Signs Temp Pulse Pulse Resp BP BP Pulse Ox 10/17/20 13:30 95 H 18 120/79 97 10/17/20 12:32 89 L 10/17/20 12:31 94 H 94 H 18 120/82 89 L 10/17/20 11:25 37.0 C 108 H 20 126/87 93 Diagnostic Findings XR chest 1V portable IMPRESSION: 1. Bilateral pulmonary airspace opacities consistent with a multifocal pneumonia. Clinical and radiographic follow-up is recommended. Medications Administered ER medications given: Magnesium sulfate 1 g IV Dexamethasone 6 mg IV Acetaminophen 1 g IV Azithromycin 500 mg p.o. NSS 500 mL bolus Potassium chloride 40 meq p.o. ECG Indication: SOB/dyspnea Rate (beats per minute): 98 Rhythm: normal sinus Findings: no acute ischemic change Comparison ECG Date: from (June 09, 2019) Change: no significant change Code Status & VTE Plan Code Status Full VTE Prophylaxis Plan VTE Prophylaxis will be ordered: Yes PG Care Time/CCT Total # of Minutes Spent Total Time Spent with Patient: Total time spent is greater than 50% in coordination of care (as documented) at patient's floor/unit and/or counseling patient: Coding Level of Care Code 37585 Initial Inpt Care Lvl 3 Diagnoses COVID-19 U07.1 Diarrhea R19.7 Weakness R53.1 Hypokalemia E87.6 Uncontrolled type II diabetes mellitus E11.65 Hypothyroidism E03.9 Asthma J45.909 DVT prophylaxis Z29.9
--- NOTE | 2020-10-17 16:00 | Electrocardiogram Report ---
Test Reason : Blood Pressure : / mmHG Vent. Rate : 098 BPM Atrial Rate : 098 BPM P-R Int : 148 ms QRS Dur : 088 ms QT Int : 348 ms P-R-T Axes : 042 -08 084 degrees QTc Int : 444 ms Normal sinus rhythm Normal ECG When compared with ECG of 09-JUN-2019 15:16, No significant change was found Confirmed by Angel Luis Tipton ([id number]) on 10/17/2020 3:59:50 PM Referred By: SELF Confirmed By:Angel Luis Tipton
[2020-10-17] MEDS ORDERED: INSULIN HUMAN NPH SC STA (16:13)
[2020-10-17 16:17] LABS: D Dimer 1200 ug/L FEU (0-500)
[2020-10-17] MEDS ORDERED: NovoLIN-N (NPH) PER UNIT CHARGE SQ STA (16:19)
[2020-10-17] MEDS ORDERED: GLUCOSE 10 TABS/TUBE PO PRN (21:59)
[2020-10-17] MEDS ORDERED: GLUCAGON FOR INJ 1 MG VIAL SQ PRN (21:59)
[2020-10-17] MEDS ORDERED: CARBOHYDRATES FOR HYPOGLYCEMIA PO PRN (21:59)
[2020-10-17] MEDS ORDERED: ONDANSETRON INJ 2 MG/ML 2 ML VIAL IV PRN (21:59)
[2020-10-17] MEDS ORDERED: DEXTROSE 50% 50 ML SYRINGE IV PRN (21:59)
[2020-10-17] MEDS ORDERED: ACETAMINOPHEN 325 MG TAB PO PRN (21:59)
[2020-10-17] MEDS ORDERED: GLUCOSE 40% GEL 15 GM TUBE PO PRN (21:59)
[2020-10-17] MEDS: SODIUM CHLORIDE 0.9% 1000ML 1,000 ML IV SCH (22:39)
[2020-10-17] MEDS: ENOXAPARIN INJ 40 MG/0.4 ML SYR SQ SCH (23:16)
[2020-10-17] MEDS: PRAVASTATIN SOD 20 MG TAB PO SCH (23:16)
[2020-10-17] MEDS: INSULIN ASPART 100 UNITS/ML 3 ML PEN SC SCH (23:17)
[2020-10-18 07:00] LABS: Basophils # (auto) 0.01 K/uL (0-0.2); Basophils % (auto) 0.1 %; Eosinophils # (auto) 0.03 K/uL (0-0.5); Eosinophils % (auto) 0.3 %; Hemoglobin 11.6 g/dL (12.0-16.0); Immature Granulocytes # (auto) 0.02 K/uL (0.00-0.02); Immature Granulocytes % (auto) 0.2 %; Lymphocytes # (auto) 0.91 K/uL (1.2-3.4); Lymphocytes % (auto) 9.5 %; Mean Corpuscular Hemoglobin 27.8 pg (25-34); Mean Corpuscular Hgb Conc 34.1 g/dL (32-36); Mean Corpuscular Volume 81.3 fL (80-100); Mean Platelet Volume 10.1 fL (7.4-10.4); Monocytes # (auto) 1.37 K/uL (0.11-0.59); Monocytes % (auto) 14.3 %; Neutrophils # (auto) 7.22 K/uL (1.4-6.5); Neutrophils % (auto) 75.6 %; Platelet Count 427 K/uL (130-400); RDW Coefficient of Variation 12.1 % (11.5-14.5); RDW Standard Deviation 35.6 fL (36.4-46.3); Red Blood Count 4.18 M/uL (4.2-5.4); White Blood Count 9.56 K/uL (4.8-10.8)
[2020-10-18 07:07] LABS: Appearance Urine Clear (Clear); Bilirubin Urine Negative (Negative); Blood Urine Negative (Negative); Color Urine Yellow; Glucose Urine UA 3+ (Negative); Ketones Urine 1+ (Negative); Leukocyte Esterase Urine Negative (Negative); Nitrite Urine Negative (Negative); Protein Urine Negative (Negative); Specific Gravity Urine 1.023 (1.000-1.030); Urobilinogen Urine Negative (Negative); pH Urine 5.5 (4.5-7.5)
[2020-10-18 07:33] LABS: Alanine Aminotransferase 28 U/L (12-78); Albumin Level 2.5 gm/dl (3.4-5.0); Aspartate Aminotransferase 16 U/L (15-37); Blood Urea Nitrogen 12 mg/dl (7-18); Calcium 8.3 mg/dl (8.5-10.1); Carbon Dioxide 27 mmol/L (21-32); Chloride 103 mmol/L (98-107); Creatinine Clr Calc Pharmacy 87.9 ml/min; Est GFR (African American) 113.9; Est GFR (Non-African American) 98.3; Estimated Average Glucose 166 mg/dl; Glucose 179 mg/dl (70-99); Hemoglobin A1C 7.4 % (4.5-5.6); Magnesium 2.5 mg/dl (1.8-2.4); Potassium 3.8 mmol/L (3.5-5.1); Sodium 136 mmol/L (136-145)
[2020-10-18 07:35] LABS: Albumin Globulin Ratio 0.6 (0.9-2); Alkaline Phosphatase 52 U/L (45-117); Bilirubin,Total 0.4 mg/dl (0.2-1); C Reactive Protein 8.51 mg/dl (0-0.29); Creatine Kinase 53 U/L (26-192); Globulin 4.3 gm/dl (2.5-4.0); Phosphorus 2.4 mg/dl (2.5-4.9); Total Protein 6.8 gm/dl (6.4-8.2); Troponin I < 0.015 ng/ml (0-0.045)
[2020-10-18] MEDS: INSULIN ASPART 100 UNITS/ML 3 ML PEN SC SCH ×4 (08:41→21:00)
[2020-10-18] MEDS: LEVOTHYROXINE SODIUM 75 MCG TABLET PO SCH (08:41)
[2020-10-18] MEDS: CYANOCOBALAMIN 500 MCG TABLET (VITAMIN B-12) PO SCH (08:41)
[2020-10-18] MEDS: DEXAMETHASONE SOD PHOSPHATE 6 MG in SYRINGE 0 ML IV SCH (08:41)
[2020-10-18] MEDS: ASPIRIN 81 MG ECTAB PO SCH (08:41)
[2020-10-18] MEDS ORDERED: DEXAMETHASONE SOD INJ 4 MG/ML VIAL IV SCH (09:00)
[2020-10-18] MEDS: ENOXAPARIN INJ 40 MG/0.4 ML SYR SQ SCH ×2 (09:28→20:48)
[2020-10-18] MEDS: SODIUM CHLORIDE 0.9% 1000ML 1,000 ML IV SCH (11:10)
--- NOTE | 2020-10-18 18:32 | Hospitalist Progress Note ---
Date of Service October 18, 2020 Assessment & Plan (1) COVID-19: Dexamethasone 6mg IV daily for 10 day course, will change to PO on discharge Diagnosis and symptoms started 10/05 -- no benefit from remedesivir or convalescent plasma and her symptoms appear to be mostly related to diarrhea and generalized fatigue than COVID-19 pneumonia. breathing well on 2L today (2) Diarrhea: Suspected secondary to COVID-19 Hold off Imodium at present time NSS @ 80ml/hr, stop this evening as PO intake a lot better electrolytes stable diarrhea resolving (3) Weakness: Generalized secondary to COVID-19. PT/OT evals. likely can go home in 1-2 days (4) Hypokalemia: Secondary to diarrhea + HCTZ (hold HCTZ) KCl 40 meq PO given in ER. BMP shows K is 3.7 repeat tomorrow (5) Uncontrolled type II diabetes mellitus: HbA1C 7.0 in May. Will repeat with AM labs - 7.4% this morning Hold Metformin and Trulicity Insulin NPH 21 units qAM to cover dexamethasone Continue Novolog for correction factor only pending repeat glucose measurements (6) Hypothyroidism: TSH 1.56 in May Continue levothyroxine home dosing (7) Asthma: No acute exacerbation suspected. No wheezing on exam. (8) DVT prophylaxis: Lovenox 40mg SQ BID (increased dose due to COVID-19 diagnosis and increased d-dimer). Admission and Anticipated Discharge Date Admission Date: October 17, 2020 Subjective patient doing really well, no diarrhea since yesterday eating much better today, no nausea no fever/chills, breathing comfortable, minimal cough reviewed chart reviewed labs, WBC normal, K 3.8 and Cr is 0.6, Na 136 glucose up at times, HbA1c 7.4% Review of Systems Review of Systems: All systems reviewed & are unremarkable except as noted in Subjective Constitutional: + weakness; no fever, no chills, no sweats and no fatigue Respiratory: + dyspnea on exertion; no cough and no dyspnea Cardiovascular: no chest pain and no edema Gastrointestinal: no abdominal pain, no nausea, no vomiting, no constipation and no diarrhea/loose stools Physical Exam Constitutional: WD/WN, vitals as above Neck: trachea midline, no thyromegaly Respiratory: normal respiratory effort, lungs clear to auscultation Cardiovascular: RRR, no murmur, no edema Gastrointestinal (Abdomen): normal bowel sounds, soft, nontender, no hepatosplenomegaly Musculoskeletal: no cyanosis or clubbing, extremities motor strength 5/5 Skin: no rashes, warm and dry Neurologic: patellar DTR's 2+ bilat, sensation intact and PERRL, EOMI, accommodation nl, no face palsy, no dysarthria Psychiatric: A+Ox3, euthymic affect Lymphatic: no cervical or axillary lymphadenopathy Results & Data Results & Data ([facility]) Vital Signs (Past 12 Hours) Vital Signs Temp Pulse Pulse Resp BP Pulse Ox 10/18/20 15:51 36.9 C 80 16 111/76 96 10/18/20 11:32 36.8 C 78 18 114/79 97 10/18/20 08:15 72 10/18/20 07:51 36.4 C L 72 18 116/86 96 Laboratory Results Laboratory Results - last 24 hr 10/17/20 10/18/20 10/18/20 22:03 04:30 05:47 WBC RBC Hgb Hct MCV MCH MCHC RDW Std Deviation RDW Coeff of Erick Plt Count MPV Immature Gran % (Auto) Neut % (Auto) Lymph % (Auto) [place] % (Auto) Eos % (Auto) Baso % (Auto) Neut # (Auto) Lymph # (Auto) [place] # (Auto) Eos # (Auto) Baso # (Auto) Immature Gran # (Auto) Sodium Potassium Chloride Carbon Dioxide Anion Gap BUN Creatinine Est Cr Clr Drug Dosing Est GFR ( Amer) Est GFR (Non-Af Amer) BUN/Creatinine Ratio Glucose POC Glucose 279 H Estimat Average Glucose Hemoglobin A1c Calcium Phosphorus Magnesium Total Bilirubin AST ALT Alkaline Phosphatase Lactate Dehydrogenase Total Creatine Kinase Troponin I C-Reactive Protein Total Protein Albumin Globulin Albumin/Globulin Ratio Procalcitonin Urine Color Yellow Urine Appearance Clear Urine pH 5.5 Ur Specific [place] 1.023 Urine Protein Negative Urine Glucose (UA) 3+ H Urine Ketones 1+ H Urine Blood Negative Urine Nitrite Negative Urine Bilirubin Negative Urine Urobilinogen Negative Ur Leukocyte Esterase Negative Hepatitis C Ab Screen Neg 10/18/20 10/18/20 10/18/20 05:47 05:47 05:47 WBC 9.56 RBC 4.18 L Hgb 11.6 L Hct 34.0 L MCV 81.3 MCH 27.8 MCHC 34.1 RDW Std Deviation 35.6 L RDW Coeff of Erick 12.1 Plt Count 427 H MPV 10.1 Immature Gran % (Auto) 0.2 Neut % (Auto) 75.6 Lymph % (Auto) 9.5 [place] % (Auto) 14.3 Eos % (Auto) 0.3 Baso % (Auto) 0.1 Neut # (Auto) 7.22 H Lymph # (Auto) 0.91 L [place] # (Auto) 1.37 H Eos # (Auto) 0.03 Baso # (Auto) 0.01 Immature Gran # (Auto) 0.02 Sodium 136 Potassium 3.8 D Chloride 103 Carbon Dioxide 27 Anion Gap 6.0 BUN 12 Creatinine 0.67 Est Cr Clr Drug Dosing 87.9 Est GFR ( Amer) 113.9 Est GFR (Non-Af Amer) 98.3 BUN/Creatinine Ratio 18.0 Glucose 179 H POC Glucose Estimat Average Glucose 166 Hemoglobin A1c 7.4 H Calcium 8.3 L Phosphorus 2.4 L Magnesium 2.5 H Total Bilirubin 0.4 AST 16 ALT 28 Alkaline Phosphatase 52 Lactate Dehydrogenase Total Creatine Kinase 53 Troponin I < 0.015 C-Reactive Protein 8.51 H Total Protein 6.8 Albumin 2.5 L Globulin 4.3 H Albumin/Globulin Ratio 0.6 L Procalcitonin Urine Color Urine Appearance Urine pH Ur Specific [place] Urine Protein Urine Glucose (UA) Urine Ketones Urine Blood Urine Nitrite Urine Bilirubin Urine Urobilinogen Ur Leukocyte Esterase Hepatitis C Ab Screen 10/18/20 10/18/20 10/18/20 05:47 05:47 08:23 WBC RBC Hgb Hct MCV MCH MCHC RDW Std Deviation RDW Coeff of Erick Plt Count MPV Immature Gran % (Auto) Neut % (Auto) Lymph % (Auto) [place] % (Auto) Eos % (Auto) Baso % (Auto) Neut # (Auto) Lymph # (Auto) [place] # (Auto) Eos # (Auto) Baso # (Auto) Immature Gran # (Auto) Sodium Potassium Chloride Carbon Dioxide Anion Gap BUN Creatinine Est Cr Clr Drug Dosing Est GFR ( Amer) Est GFR (Non-Af Amer) BUN/Creatinine Ratio Glucose POC Glucose 167 H Estimat Average Glucose Hemoglobin A1c Calcium Phosphorus Magnesium Total Bilirubin AST ALT Alkaline Phosphatase Lactate Dehydrogenase 223 Total Creatine Kinase Troponin I C-Reactive Protein Total Protein Albumin Globulin Albumin/Globulin Ratio Procalcitonin < 0.05 Urine Color Urine Appearance Urine pH Ur Specific [place] Urine Protein Urine Glucose (UA) Urine Ketones Urine Blood Urine Nitrite Urine Bilirubin Urine Urobilinogen Ur Leukocyte Esterase Hepatitis C Ab Screen 10/18/20 10/18/20 10/18/20 11:59 16:47 20:47 WBC RBC Hgb Hct MCV MCH MCHC RDW Std Deviation RDW Coeff of Erick Plt Count MPV Immature Gran % (Auto) Neut % (Auto) Lymph % (Auto) [place] % (Auto) Eos % (Auto) Baso % (Auto) Neut # (Auto) Lymph # (Auto) [place] # (Auto) Eos # (Auto) Baso # (Auto) Immature Gran # (Auto) Sodium Potassium Chloride Carbon Dioxide Anion Gap BUN Creatinine Est Cr Clr Drug Dosing Est GFR ( Amer) Est GFR (Non-Af Amer) BUN/Creatinine Ratio Glucose POC Glucose 243 H 281 H 274 H Estimat Average Glucose Hemoglobin A1c Calcium Phosphorus Magnesium Total Bilirubin AST ALT Alkaline Phosphatase Lactate Dehydrogenase Total Creatine Kinase Troponin I C-Reactive Protein Total Protein Albumin Globulin Albumin/Globulin Ratio Procalcitonin Urine Color Urine Appearance Urine pH Ur Specific [place] Urine Protein Urine Glucose (UA) Urine Ketones Urine Blood Urine Nitrite Urine Bilirubin Urine Urobilinogen Ur Leukocyte Esterase Hepatitis C Ab Screen Medications Administered Current Inpatient Medications Acetaminophen (Acetaminophen 325 Mg Tab) 650 mg PO Q4H PRN PRN Reason: Pain or Fever Stop: 11/16/20 21:58 Aspirin (Aspirin 81 Mg Ectab) 81 mg PO DAILY [facility] Stop: 11/17/20 08:59 Last Admin: 10/18/20 08:41 Dose: 81 mg Documented by: Cyanocobalamin (Cyanocobalamin 500 Mcg Tablet (Vitamin B-12)) 1,000 mcg PO DAILY JUAN MANUEL Stop: 11/17/20 08:59 Last Admin: 10/18/20 08:41 Dose: 1,000 mcg Documented by: Dextrose (Dextrose 50% 50 Ml Syringe) 25 - 50 ml IV UD PRN; Protocol PRN Reason: Hypoglycemia Protocol Stop: 11/16/20 21:58 Enoxaparin Sodium (Enoxaparin Inj 40 Mg/0.4 Ml Syr) 40 mg SQ BID JUAN MANUEL Stop: 11/16/20 22:14 Last Admin: 10/18/20 20:48 Dose: 40 mg Documented by: Glucagon (Glucagon For Inj 1 Mg Vial) 1 mg SQ UD PRN; Protocol PRN Reason: Hypoglycemia Protocol Stop: 11/16/20 21:58 Glucose (Glucose 10 Tabs/Tube) 4 - 8 tabs PO UD PRN; Protocol PRN Reason: Hypoglycemia Protocol Stop: 11/16/20 21:58 Glucose (Glucose 40% Gel 15 Gm Tube) 15 - 30 gm PO UD PRN; Protocol PRN Reason: Hypoglycemia Protocol Stop: 11/16/20 21:58 Dexamethasone Sodium Phosphate (6 mg/ Syringe) 1.5 mls @ 1 mls/min IV QAM [facility] Stop: 10/26/20 09:02 Last Admin: 10/18/20 08:41 Dose: 1 mls/min Documented by: Insulin Aspart (Insulin Aspart 100 Units/Ml 3 Ml Pen) 0 units SC ACHS [facility] Stop: 11/16/20 22:14 Last Admin: 10/18/20 21:00 Dose: 4 units Documented by: Insulin Human NPH (Insulin Human Nph) [facility] Stop: 11/18/20 08:59 Levothyroxine Sodium (Levothyroxine Sodium 75 Mcg Tablet) 75 mcg PO DAILYBB [facility] Stop: 11/17/20 06:29 Last Admin: 10/18/20 08:41 Dose: 75 mcg Documented by: Miscellaneous (Carbohydrates For Hypoglycemia ) 15 - 30 gm PO UD PRN PRN Reason: Hypoglycemia Protocol Stop: 11/16/20 21:58 Ondansetron HCl (Ondansetron Inj 2 Mg/Ml 2 Ml Vial) 4 mg IV Q6H PRN PRN Reason: Nausea Stop: 11/16/20 21:58 Pravastatin Sodium (Pravastatin Sod 20 Mg Tab) 20 mg PO HS [facility] Stop: 11/16/20 22:14 Last Admin: 10/18/20 20:48 Dose: 20 mg Documented by: PG Care Time/CCT Total # of Minutes Spent Total Time Spent with Patient: Total time spent is greater than 50% in coordination of care (as documented) at patient's floor/unit and/or counseling patient: Coding Level of Care Code 74522 Subseq Hosp Care Lvl 3 Diagnoses COVID-19 U07.1 Diarrhea R19.7 Weakness R53.1 Hypokalemia E87.6 Uncontrolled type II diabetes mellitus E11.65 Hypothyroidism E03.9 Asthma J45.909 DVT prophylaxis Z29.9
[2020-10-18] MEDS: PRAVASTATIN SOD 20 MG TAB PO SCH (20:48)
[2020-10-19] MEDS: LEVOTHYROXINE SODIUM 75 MCG TABLET PO SCH (06:06)
[2020-10-19 07:36] LABS: BUN Creatinine Ratio 23.8 (10-20); Calcium 8.4 mg/dl (8.5-10.1); Creatinine Clr Calc Pharmacy 71.2 ml/min; Est GFR (African American) 91.4; Est GFR (Non-African American) 78.8; Potassium 3.6 mmol/L (3.5-5.1)
[2020-10-19] MEDS: INSULIN ASPART 100 UNITS/ML 3 ML PEN SC SCH ×2 (08:57→12:41)
[2020-10-19] MEDS: DEXAMETHASONE SOD PHOSPHATE 6 MG in SYRINGE 0 ML IV SCH (08:59)
[2020-10-19] MEDS ORDERED: INSULIN HUMAN NPH SC SCH (09:00)
[2020-10-19] MEDS: ENOXAPARIN INJ 40 MG/0.4 ML SYR SQ SCH (09:01)
[2020-10-19] MEDS: CYANOCOBALAMIN 500 MCG TABLET (VITAMIN B-12) PO SCH (09:02)
[2020-10-19] MEDS: ASPIRIN 81 MG ECTAB PO SCH (09:02)
--- NOTE | 2020-10-20 14:17 | Discharge Summary ---
Date of Service October 19, 2020 Admission HPI Per Admitting Provider Emma Vazquez is a 54 year old female with known COVID-19 diagnosis who presents to the ER with worsening fatigue and diarrhea. Initial symptoms for COVID-19 started with headache and myalgias on October 05. She initially felt she was improving from a respiratory point of view however started having increased diarrhea and associated fatigue over the last two days. Diarrhea is loose and brown. Associated decreased appetite. She denies any nausea, vomiting, melena, bright red blood in stool or abdominal pain. She denies any fevers, chills, flank pain, no dysuria, change in urine color/frequency/smell. She denies any significant shortness of breath and initial cough has been improving. In the ER chest x-ray was concerning for multifocal pneumonia. Procalcitonin negative. She was mildly hypoxic and referred to medicine admission and ongoing management for hypoxia and Covid pneumonia. Principal Diagnosis COVID 19 infection Discharge Exam Constitutional WD/WN, vitals as above Neck trachea midline, no thyromegaly Respiratory normal respiratory effort, lungs clear to auscultation Cardiovascular RRR, no murmur, no edema Gastrointestinal (Abdomen) normal bowel sounds, soft, nontender, no hepatosplenomegaly Musculoskeletal no cyanosis or clubbing, extremities motor strength 5/5 Skin no rashes, warm and dry Neurologic patellar DTR's 2+ bilat, sensation intact and PERRL, EOMI, accommodation nl, no face palsy, no dysarthria Psychiatric A+Ox3, euthymic affect Lymphatic no cervical or axillary lymphadenopathy Discharge Data Allergies Allergy/AdvReac Type Severity Reaction Status Date / Time No Known Allergies Allergy Verified 10/17/20 13:41 Consultations 10/17/20 15:07 ED Decision to Admit Stat Hospital Course (1) COVID-19: Dexamethasone 6mg IV daily while inpatient titrated to room air, steroids would be of no benefit at this time lungs clear, breathing stable Diagnosis and symptoms started 10/05 -- no benefit from remedesivir or convalescent plasma and her symptoms appear to be mostly related to diarrhea and generalized fatigue breathing well on room air for nearly 24 hours, no desaturations (2) Diarrhea: Suspected secondary to COVID-19 Hold off Imodium at present time NSS @ 80ml/hr, stopped after 24 hours as oral intake improved electrolytes stable diarrhea resolved discharge to home, stay well hydrated and well nourished (3) Weakness: Generalized secondary to COVID-19. PT/OT evals. strong enough to go home today (4) Hypokalemia: Secondary to diarrhea + HCTZ (hold HCTZ) KCl 40 meq PO given in ER. BMP shows K is normal will continue to hold HCTZ (5) Uncontrolled type II diabetes mellitus: HbA1C 7.0 in May. Will repeat with AM labs - 7.4% Hold Metformin and Trulicity while inpatient Insulin NPH 21 units qAM to cover dexamethasone Continue Novolog for correction factor only pending repeat glucose measurements resume home regimen on discharge, follow low carbohydrate diet (6) Hypothyroidism: TSH 1.56 in May Continue levothyroxine home dosing (7) Asthma: No acute exacerbation suspected. No wheezing on exam. Total Time Total Time Spent Total Time Spent (In Minutes): 32 minutes Total Time Includes: Examination of the Patient, Discharge Planning and Medication Reconciliation Discharge Plan Discharge Items Patient Disposition: Home - Self-Care Reason For Visit: COVID-19, DIARRHEA Discharge Diagnosis: COVID 19 infection, weakness, diarrhea Condition on Discharge: Good Activity: Resume your previous activity Non-emergency contact: Primary Care Provider Call non-emergency contact if: you have any medication questions, your symptoms worsen and you have a fever Follow-up/Referrals: Erika Bonner CRNP [Primary Care Provider] - 10/24/20 9:30 am (YOUR APPOINTMENT WILL BE A VIRTUAL APPOINTMENT) Diet: Carb Consistent or DM2 Addtl Attending Provider Instructions: Medications: stop hydrochlorothiazide COVID 19, weakness, diarrhea no evidence of hypoxia at this time no further need for steroids since your initial diagnosis was 10/05 and you are not hypoxia steroids would be of no benefit stay well hydrated, well nourished, stay active will stop hydrochlorothiazide for now to help stay hydrated and keep potassium normal please follow up with PCP in one week you no longer need to be in isolation since initial positive test was 10/05 Pending Studies at Discharge: No Stand-Alone Forms: My Schedule [employer], Smoking Cessation Medications and DC Order Prescriptions: Continued lisinopril 2.5 mg tablet 2.5 mg PO DAILY Qty: 90 RF: 3 pravastatin 20 mg tablet 20 mg PO HS Qty: 90 RF: 3 Trulicity 1.5 mg/0.5 mL pen injector 1.5 mg SQ WEEKLY 90 Days Qty: 6 RF: 3 levothyroxine 75 mcg tablet 75 mcg PO .COMPLEX Qty: 90 RF: 1 vitamin E 200 unit capsule 200 unit PO DAILY RF: 0 cyanocobalamin (vitamin B-12) [Vitamin B-12] 1,000 mcg tablet 1,000 mcg PO DAILY RF: 0 aspirin [Aspirin Low Dose] 81 mg tablet,delayed release (DR/EC) 81 mg PO DAILY RF: 0 elderberry fruit 200 mg capsule PO RF: 0 metformin 1,000 mg tablet 1,000 mg PO BID Qty: 60 RF: 5 ondansetron HCl [Zofran] 4 mg tablet 4 mg PO Q8H PRN (Reason: nausea and vomiting) Qty: 30 RF: 0 Discontinued hydrochlorothiazide 25 mg tablet 25 mg PO DAILY Qty: 90 RF: 1 No Action albuterol sulfate 2.5 mg /3 mL (0.083 %) solution for nebulization 2.5 mg INHALATION .COMPLEX PRN (Reason: Shortness Of Breath) Qty: 180 RF: 5 Discharge Orders: Discharge Order (Routine); Ordered 10/19/20 Ordered By: Riky Mccullough/Other Patient Handouts: Managing Type 2 Diabetes Admission Data Admit Date/Time: 10/17/20 16:11 Attending Provider: Riky Multani Admit Provider: Cody Pradhan Primary Care Provider: Erika Bonner Other Providers: Cody Pradhan Other Interventions: Discharge Summary Assessment (RN) Last Done: 10/19/20 11:34 Coding Level of Care Code D/C Day Management >30 mins Diagnoses COVID-19 U07.1 Diarrhea R19.7 Weakness R53.1 Hypokalemia E87.6 Uncontrolled type II diabetes mellitus E11.65 Hypothyroidism E03.9 Asthma J45.909
== END 2020-10-19 15:02 | disposition home or self-care (01) | DRG 179 ==
LOC: ED 11:16 → SUATTDRO 16:11 → 2S 16:11